=== PATIENT | female | born 1955 | race African-American/Black ===

== ENCOUNTER 2024-04-12 16:45 | Inpatient (IN) | payer OTHER ==
[~2024-04-12] VITALS: Ht 167.6 cm; Wt 70.4 kg
--- NOTE | 2024-04-12 17:35 | ED.PDOC ---
Musculoskeletal HPI Comments HPI: Poor Historian. 68-year-old female presents to emergency department for evaluation of left lower extremity DVT that is chronic in nature. She was diagnosed with this approximately five years ago as she used to be on Xarelto but she stopped the Xarelto two years ago and she is only on aspirin now. Patient is visiting from [facility] and had an ultrasound done today of the left lower extremity because she persisted to have some pain and they also wanted to check a for the DVT has resolved and the impression report that she has with her shows exclusive here occlusive DVT within the left femoral and left popliteal vein similar to the previous image that was obtained in 2020. Incidentally also patient was recently diagnosed with TV and is currently on ice on his side. Past Medcial History: TB, DVT, hypertension, hyperlipidemia, Past Surgical History: Denies any REVIEW OF SYSTEMS: CONSTITUTIONAL: Denies acute: fever, diaphoresis, chills, generalized weakness. HEAD: Denies acute: headache, photophobia Eyes: Denies acute: Double vision, vision loss, eye pain, eye discharge. EARS: Denies acute: tinnitus, hearing loss, ear discharge, ear pain, THROAT: Denies acute: sore throat, swelling, difficulty swallowing , pain with swallowing, change in voice. NECK: Denies acute: neck pain, neck swelling, stiff neck. HEART: Denies acute : chest pain, palpitations, LUNGS: Denies acute: SOB, wheezing, cough, hemoptysis ABDOMEN: Denies acute: abdominal pain, Nausea, Vomiting, diarrhea, melena , hematemesis, hematochezia SKIN: Denies acute: rash, redness, lesions, itchiness. EXTREMITIES: Denies acute: calf pain, numbness, tingling, weakness, Denies acute: Low back pain. Neuro: Denies acute: focal neurological deficit, motor or sensory focal neurological deficit, tremors, seizure like activity, confusion, dizziness, change in mental status, loss of bowel or bladder function, cauda equina like symptoms. : Denies acute: dysuria, hematuria, flank pain, increase in urinary frequency. PSYCH: Denies acute: hallucination, suicidal ideation, homicidal ideation. FEMALE: Denies acute: abnormal vaginal bleeding, foul odor, unusual discharge. PHYSICAL EXAM: General: no acute distress, awake and alert. Head: normocephalic, atraumatic. Neck: supple, trachea is midline, no swelling. Throat: Normal phonation. Eyes:, no erythema, no purulent discharge, no proptosis, no icterus. Heart: regular rate, regular rhythm, no significant murmur appreciated. Lungs: no apparent respiratory distress, Able to speak in full sentences. No wheezing, no rhonchi, no crackles. No stridors Clear to auscultation bilaterally. Abdomen: non tender to palpation, non distended, soft, no guarding, no rebound, + bowel sounds. Neuro: Awake, Alert, oriented to name, self, situation, follows commands GCS=15. Speech is normal. Skin: no petechia, no purpura, no cyanosis, non-pale, not jaundice. Lower extremities: --trace bilateral - Pitting edema no deformity, no focal swelling, no calf TTP. Makes eye contact. moves all four extremities. Face: no apparent facial droop. Ambulating in the ED independently. Time Seen by MD: 17:02 Reviewed Notes: Nurses Notes, Allergies Information Source: Patient Location: GARRY Brito DO Apr 12, 2024 17:35
[2024-04-12 18:42] LABS: Basophils # (auto) 0 10 ^3/uL (0-0.2); Basophils % (auto) 0.6 % (0.0-2.0); Eosinophils # (auto) 0.1 10 ^3/uL (0-0.8); Eosinophils % (auto) 2.2 % (0.0-7.0); Hematocrit 33.5 % (36.0-46.0); Hemoglobin 11.3 g/dL (12.2-16.2); Lymphocytes # (auto) 2.4 10 ^3/uL (0.4-5.4); Lymphocytes % (auto) 49.9 % (10.0-50.0); Mean Corpuscular Hemoglobin 27.4 pg (28.0-32.0); Mean Corpuscular Hgb Conc. 33.7 g/dL (32.0-36.0); Mean Corpuscular Volume 81.4 fL (80.0-100.0); Monocytes # (auto) 0.3 10 ^3/uL (0-1.3); Monocytes % (auto) 6.9 % (0.0-12.0); Neutrophils # (auto) 1.9 10 ^3/uL (1.6-8.6); Neutrophils % (auto) 40.4 % (37.0-80.0); Nucleated Red Blood Cells % 0.6 %; Platelet Count (auto) 270 10^3/uL (140-450); Red Blood Cells 4.11 10^6/uL (4.0-5.20); Red Cell Distribution Width 18.4 % (11.8-14.3); White Blood Cell 4.8 10^3/uL (4.4-10.8)
[2024-04-12 18:58] LABS: Alanine Aminotransferase 21 U/L (7-40); Anion Gap 7 (5-15); Aspartate Aminotransferase 20 U/L (13-40); BUN/Creatinine Ratio 13.3 (10.0-20.0); Bilirubin, Total 0.5 mg/dL (0.2-1.0); Blood Urea Nitrogen 12 mg/dL (9-23); Carbon Dioxide 29 mmol/L (20-31); Chloride 102 mmol/L (98-107); Glucose 100 mg/dL (74-106); Potassium 3.5 mmol/L (3.5-5.1); Sodium 138 mmol/L (136-145)
[2024-04-12 18:59] LABS: Alkaline Phosphatase 37 U/L (46-116); Calcium 10.8 mg/dL (8.7-10.4); Total Protein 8.8 g/dL (5.7-8.2)
[2024-04-12 19:01] LABS: INR 1.08 (0.9-1.15); Partial Thromboplastin Time 24.2 SEC (24.5-34.5); Prothrombin Time 11.4 sec (9.3-11.8)
[2024-04-12 22:12] LABS: Urine Bacteria None Seen /hpf (None Seen)
[2024-04-12 23:07] LABS: Urine Blood Negative /uL (Negative); Urine Clarity Clear (Clear); Urine Color Light-Yellow (Yellow); Urine Protein, UAD Negative (Negative); Urine Specific Gravity 1.014 (1.001-1.035); Urine Squamous Epithelial Cell FEW /hpf (<5); Urine Urobilinogen Normal (Negative); Urine WBC 1 /hpf (0 - 5)
[2024-04-12] MEDS ORDERED: ONDANSETRON HCL 4 MG/2 ML VIAL IV PRN (23:30)
[2024-04-12] MEDS ORDERED: TEMAZEPAM 15 MG CAP PO PRN (23:30)
--- NOTE | 2024-04-12 23:41 | DVHHP2 ---
History of Present Illness Reason for Visit: Left leg swelling History of Present Illness 68 female presents for evaluation of left lower extremity swelling. Patient reports a history of left lower extremity DVT for which she was on Xarelto two years ago. Currently she is not on any blood thinners. She was sent for a repeat ultrasound of her left lower extremity due to increased swelling by her primary care provider. Results of the ultrasound revealed a left lower extremity near occlusive DVT. She denies chest pain or shortness for breath. Denies any other acute complaints at the moment. Past Medical History Hypertension, dyslipidemia, DVT and tuberculosis Past Surgical History Denies Family History Noncontributory Smoke: No ALCOHOL: none Drugs: None Lives: with Family Review of Systems Review of Systems Review of systems are currently negative otherwise addressed in HPI. Allergies: Coded Allergies: Acetaminophen (Verified Allergy, Unknown, 04/12/24) Medications Current Medications Medications Dose Ordered Sig/[place] Route Start Time Stop Time Status Last Admin Dose Admin Isoniazid 300 mg DAILY PO 04/13/24 10:00 UNV Atorvastatin Calcium 20 mg HS PO 04/13/24 22:00 UNV Losartan Potassium 25 mg DAILY PO 04/13/24 10:00 UNV Hydrochlorothiazide 25 mg DAILY PO 04/13/24 10:00 UNV Enoxaparin Sodium 70 mg Q12HR SC 04/13/24 10:00 UNV Temazepam 15 mg QHSP PRN PO 04/12/24 23:30 UNV Ondansetron HCl 4 mg Q4HP PRN IV 04/12/24 23:30 UNV Exam Vital Signs Vital Signs Date Time Temp Pulse Resp B/P (MAP) Pulse Ox O2 Delivery O2 Flow Rate FiO2 04/12/24 17:43 98.2 87 16 132/82 (99) 98 Exam Gen: 68-year-old female in mild distress Skin: Warm, dry, normal color and texture, no rash. HEENT: Normocephalic atraumatic, mucous membranes moist and pink. Neck: Cervical and supraclavicular nodes normal without enlargement, trachea is midline, thyroid gland is normal without masses. Pulmonary: Clear to auscultation and percussion bilaterally. Cardiac: Regular rate and rhythm. No murmur Abdomen: Soft, nontender, nondistended, bowel sounds present all 4 quadrants, no guarding, no rigidity, no organomegaly. Extremities: No cyanosis, clubbing, left lower extremity plus one edema mild tenderness Neuro: Cranial nerves II through XII grossly intact, normal affect and speech, no focal motor deficits. Labs/Xrays Labs Test 04/12/24 22:11 04/12/24 21:31 04/12/24 18:00 Range/Units Urine Color Light-yellow Yellow Urine Clarity Clear Clear Urine pH 6.0 5.0-9.0 Urine Specific [place] 1.014 1.001-1.035 Urine Protein Negative Negative Urine Ketones Negative Negative Urine Blood Negative Negative /uL Urine Nitrite Negative Negative Urine Bilirubin Negative Negative Urine Urobilinogen Normal Negative mg/dL Urine Leukocyte Esterase 1+ Negative /uL Urine RBC 1 0 - 4 /hpf Urine WBC 1 0 - 5 /hpf Urine Squamous Epithelial Cells Few <5 /hpf Urine Bacteria None seen None Seen /hpf Urine Glucose Normal Normal mg/dL Troponin I High Sensitivity 3 L </=34 ng/L White Blood Count 4.8 4.4-10.8 10^3/uL Red Blood Count 4.11 4.0-5.20 10^6/uL Hemoglobin 11.3 L 12.2-16.2 g/dL Hematocrit 33.5 L 36.0-46.0 % Mean Corpuscular Volume 81.4 80.0-100.0 fL Mean Corpuscular Hemoglobin 27.4 L 28.0-32.0 pg Mean Corpuscular Hemoglobin Concent 33.7 32.0-36.0 g/dL Red Cell Distribution Width 18.4 H 11.8-14.3 % Platelet Count 270 140-450 10^3/uL Mean Platelet Volume 7.4 6.9-10.8 fL Neutrophils (%) (Auto) 40.4 37.0-80.0 % Lymphocytes (%) (Auto) 49.9 10.0-50.0 % Monocytes (%) (Auto) 6.9 0.0-12.0 % Eosinophils (%) (Auto) 2.2 0.0-7.0 % Basophils (%) (Auto) 0.6 0.0-2.0 % Neutrophils # (Auto) 1.9 1.6-8.6 10 ^3/uL Lymphocytes # (Auto) 2.4 0.4-5.4 10 ^3/uL Monocytes # (Auto) 0.3 0-1.3 10 ^3/uL Eosinophils # (Auto) 0.1 0-0.8 10 ^3/uL Basophils # (Auto) 0 0-0.2 10 ^3/uL Nucleated Red Blood Cells 0.6 % Prothrombin Time 11.4 9.3-11.8 sec Prothrombin Time INR 1.08 0.9-1.15 Activated Partial Thromboplast Time 24.2 L 24.5-34.5 SEC D-Dimer, Quantitative 1.23 H 0.0-0.49 mg/L FEU Sodium Level 138 136-145 mmol/L Potassium Level 3.5 3.5-5.1 mmol/L Chloride Level 102 98-107 mmol/L Carbon Dioxide Level 29 20-31 mmol/L Anion Gap 7 5-15 Blood Urea Nitrogen 12 9-23 mg/dL Creatinine 0.90 0.550-1.02 mg/dL Glomerular Filtration Rate Calc 71 >90 mL/min BUN/Creatinine Ratio 13.3 10.0-20.0 Serum Glucose 100 74-106 mg/dL Calcium Level 10.8 H 8.7-10.4 mg/dL Total Bilirubin 0.5 0.2-1.0 mg/dL Aspartate Amino Transferase (AST) 20 13-40 U/L Alanine Aminotransferase (ALT) 21 7-40 U/L Alkaline Phosphatase 37 L 46-116 U/L Total Protein 8.8 H 5.7-8.2 g/dL Albumin 4.0 3.2-4.8 g/dL Assessment/Plan Assessment/Plan Assessment Left lower extremity DVT Urinary tract infection Hypertension Tuberculosis Plan Admit the patient to [facility] to the hospitalist CT angiogram pending ordered by ER provider Lovenox 1 milligram/kilogram subcutaneously q.12 hours Resume home medications Continue treatment per orders. Plan discussed with: Patient My Orders Orders - BRYCE HAIR AGACNP Procedure Category Date Status Time Isoniazid (Isoniazid) PHA 04/13/24 Logged 10:00 Atorvastatin (Lipitor) PHA 04/13/24 Logged 22:00 Losartan Tablet PHA 04/13/24 Logged (Cozaar Tablet) 10:00 Hydrochlorothiazide PHA 04/13/24 Logged Tablet (Hydrochlorot 10:00 Enoxaparin Sodium PHA 04/13/24 Logged (Lovenox) 10:00 Enoxaparin Sodium PHA 1/8/25 Logged (Lovenox) 23:30 Basic Metabolic Panel LAB 04/13/24 Verified 04:00 Admit ADMIT 04/12/24 Transmitted 23:23 Temazepam (Restoril) PHA 04/12/24 Logged 23:30 Ondansetron Hcl PHA 04/12/24 Logged (Zofran) 23:30 Cardiac DIET 04/13/24 Transmitted Diet-2gna,Lofat,Lochol Breakfast Condition: Stable RAFFY 04/12/24 In Process 23:23 Bedrest With Bathroom RAFFY 04/12/24 In Process Privileg 23:23 Date of Service: Apr 12, 2024 Billing Provider: BRYCE HAIR Common Visit Codes: [id number] INP/OBS CARE (HIGH) BRYCE HAIR Apr 12, 2024 23:41
--- NOTE | 2024-04-13 00:18 | DVH ---
CHEST RADIOGRAPH Indication: LLE DVT, h/o TB Technique: Single frontal view of the chest was obtained Comparison: None FINDINGS: Lines and Tubes: None Lungs: Clear Pleura: No effusion. No pneumothorax. Cardiomediastinal contours: Unremarkable Bones: Unremarkable IMPRESSION: Clear lungs.
--- NOTE | 2024-04-13 00:25 | DVH ---
CTA Chest with intravenous contrast INDICATION: dvt, TB Comparison Study: None available at time of dictation. TECHNIQUE: Multidetector spiral CTA of the chest was performed of the chest with intravenous contrast . PULMONARY ANGIOGRAPHY PROTOCOL was utilized using a bolus-tracking technique centered on the main p ulmonary artery. Axial, coronal and sagittal multiplanar and MIP reformats were performed. Radiation Dose : 1. Chest: CTDI volume is 123 mGy. Dose-length product is 465 mGy*cm The dose indicators for CT are the volume Computed Tomography (CT) Dose Index (CTDIvol) and the Dose Length Product (DLP), and are measured in units of mGy and mGy-cm, respectively. These indicators are not patient dose, but values generated from the CT scanner acquisition factors. The report includes radiation exposure data for exposures received during this examination. Findings: Pulmonary artery: Pulmonary embolism. No dilation of the pulmonary trunk. No right heart strain. Lower neck: Within normal limits.. Lungs: Within normal limits.. Heart/Vascular Structures: Mild cardiomegaly. Lymph Nodes: No adenopathy Pleura: Within normal limits.. Musculoskeletal: Within normal limits.. Body wall: Within normal limits.. Upper abdomen: Within normal limits. IMPRESSION: No pulmonary embolism. No aortic dissection or aneurysm.
[2024-04-13 04:05] VITALS: PULSE 69; RESP 18; TEMP 98.8; O2SAT 97
[2024-04-13] MEDS: ENOXAPARIN SOD 100 MG/1 ML SYRINGE SC ONE (04:22)
[2024-04-13 05:59] LABS: Chloride 105 mmol/L (98-107); Sodium 140 mmol/L (136-145)
[2024-04-13 06:00] LABS: Anion Gap 7 (5-15); Carbon Dioxide 28 mmol/L (20-31)
[2024-04-13 06:01] LABS: Calcium 10.2 mg/dL (8.7-10.4)
[2024-04-13 06:05] LABS: BUN/Creatinine Ratio 19.1 (10.0-20.0); Blood Urea Nitrogen 13 mg/dL (9-23); Glucose 86 mg/dL (74-106)
[2024-04-13 06:07] LABS: Potassium 3.4 mmol/L (3.5-5.1)
--- NOTE | 2024-04-13 07:18 | ECG ---
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
[2024-04-13 07:30] VITALS: PULSE 72; RESP 18; O2SAT 99
[2024-04-13 08:41] VITALS: BP 136/92; PULSE 72; RESP 18; O2SAT 99
[2024-04-13] MEDS: POTASSIUM CHL 20 Meq TABLET PO ONE (09:00)
[2024-04-13] MEDS ORDERED: ISON300T68 PO (09:15)
[2024-04-13] MEDS ORDERED: FOLI-119 PO (09:15)
[2024-04-13] MEDS ORDERED: ATOR20TA PO (09:15)
[2024-04-13] MEDS ORDERED: RIVA20TA PO (09:15)
[2024-04-13] MEDS ORDERED: LOSA-533 PO (09:18)
[2024-04-13] MEDS ORDERED: CHOL1TAB42 PO (09:18)
[2024-04-13] MEDS ORDERED: HYDR25TA4 PO (09:18)
[2024-04-13] MEDS ORDERED: AMLO1TAB22 PO (09:18)
--- NOTE | 2024-04-13 09:28 | DVHDS2 ---
Discharge Summary Date of Admission Apr 12, 2024 at 23:23 Date of Discharge: Apr 13, 2024 Labs/Diagnostic Data: Laboratory Results Test 04/13/24 05:00 04/12/24 22:11 04/12/24 21:31 04/12/24 18:00 Sodium Level 140 mmol/L (136-145) Potassium Level 3.4 mmol/L (3.5-5.1) Chloride Level 105 mmol/L (98-107) Carbon Dioxide Level 28 mmol/L (20-31) Anion Gap 7 (5-15) Blood Urea Nitrogen 13 mg/dL (9-23) Creatinine 0.68 mg/dL (0.550-1.02) Glomerular Filtration Rate Calc 96 mL/min (>90) BUN/Creatinine Ratio 19.1 (10.0-20.0) Serum Glucose 86 mg/dL (74-106) Calcium Level 10.2 mg/dL (8.7-10.4) Urine Color Light-yellow (Yellow) Urine Clarity Clear (Clear) Urine pH 6.0 (5.0-9.0) Urine Specific [place] 1.014 (1.001-1.035) Urine Protein Negative (Negative) Urine Ketones Negative (Negative) Urine Blood Negative /uL (Negative) Urine Nitrite Negative (Negative) Urine Bilirubin Negative (Negative) Urine Urobilinogen Normal mg/dL (Negative) Urine Leukocyte Esterase 1+ /uL (Negative) Urine RBC 1 /hpf (0 - 4) Urine WBC 1 /hpf (0 - 5) Urine Squamous Epithelial Cells Few /hpf (<5) Urine Bacteria None seen /hpf (None Seen) Urine Glucose Normal mg/dL (Normal) Troponin I High Sensitivity 3 ng/L (</=34) White Blood Count 4.8 10^3/uL (4.4-10.8) Red Blood Count 4.11 10^6/uL (4.0-5.20) Hemoglobin 11.3 g/dL (12.2-16.2) Hematocrit 33.5 % (36.0-46.0) Mean Corpuscular Volume 81.4 fL (80.0-100.0) Mean Corpuscular Hemoglobin 27.4 pg (28.0-32.0) Mean Corpuscular Hemoglobin Concent 33.7 g/dL (32.0-36.0) Red Cell Distribution Width 18.4 % (11.8-14.3) Platelet Count 270 10^3/uL (140-450) Mean Platelet Volume 7.4 fL (6.9-10.8) Neutrophils (%) (Auto) 40.4 % (37.0-80.0) Lymphocytes (%) (Auto) 49.9 % (10.0-50.0) Monocytes (%) (Auto) 6.9 % (0.0-12.0) Eosinophils (%) (Auto) 2.2 % (0.0-7.0) Basophils (%) (Auto) 0.6 % (0.0-2.0) Neutrophils # (Auto) 1.9 10 ^3/uL (1.6-8.6) Lymphocytes # (Auto) 2.4 10 ^3/uL (0.4-5.4) Monocytes # (Auto) 0.3 10 ^3/uL (0-1.3) Eosinophils # (Auto) 0.1 10 ^3/uL (0-0.8) Basophils # (Auto) 0 10 ^3/uL (0-0.2) Nucleated Red Blood Cells 0.6 % Prothrombin Time 11.4 sec (9.3-11.8) Prothrombin Time INR 1.08 (0.9-1.15) Activated Partial Thromboplast Time 24.2 SEC (24.5-34.5) D-Dimer, Quantitative 1.23 mg/L FEU (0.0-0.49) Total Bilirubin 0.5 mg/dL (0.2-1.0) Aspartate Amino Transferase (AST) 20 U/L (13-40) Alanine Aminotransferase (ALT) 21 U/L (7-40) Alkaline Phosphatase 37 U/L (46-116) Total Protein 8.8 g/dL (5.7-8.2) Albumin 4.0 g/dL (3.2-4.8) Other Laboratory Tests 04/13/24 05:00 04/12/24 18:00 Brief Hx & Hospital Course: 68-year-old female with a history of hypertension and DVT of her leg came because of increased swelling in her leg and had an ultrasound as an outpatient which showed recurrent DVT. The patient has not been taking anticoagulation for 2-3 years now. She was taking Xarelto but she stopped it 3 years ago after she took it for 2 years She also had a positive TB test and she has been taking isoniazid since January of 2024. She denies any respiratory symptoms. She has no cough, no hemoptysis, no fever no chills no night sweats no weight loss She has retired here and then went to [facility] to stay there and she has been staying there. She is going back there in about 10 days. 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 She was never diagnosed with TB, she says she had a positive blood test and she was treated with diet and isoniazid for that and therefore there is no need to check for active tuberculosis since also the chest x-ray is negative. Condition at Discharge: Stable Final Diagnosis/Problems List LLE DVT HTN Discharge Disposition: Home SNF Discharge Will this Physician continue t: No Discharge Instruct/Medications Diet: Cardiac 2g Na,low cholest Activity: No Restrictions, As Tolerated Follow Up/Referral: PCP JOHN Medications: Xarelto 20 mg qd Resume home meds Discharge Statement: "Patient was advised to return to the ER or call 911 if any headaches, dizziness, shortness of breath, chest pain, abdominal pain, bleeding, fevers, or worsening of medical condition. Patient was counseled about treatment plan, medications, possible side effects, patientverbalized understanding. All questions were answered to the best of my ability. This discharge took greater then 30 minutes in planning, reviewing documentation, counseling the patient, and discussing with other team members." ASSESSMENT ASSESSMENT Assessment LLE DVT HTN Date of Service: Apr 13, 2024 Billing Provider: ROOSEVELT LAWRENCE MD Common Visit Codes: NOT BILLABLE ROOSEVELT LAWRENCE MD Apr 13, 2024 09:28
[2024-04-13] MEDS: ISONIAZID 300 MG TAB PO SCH (10:00)
[2024-04-13] MEDS: ENOXAPARIN SOD 100 MG/1 ML SYRINGE SC SCH (10:30)
[2024-04-13] MEDS: LOSARTAN POTASSIUM 25 MG TAB PO SCH (10:31)
[2024-04-13] MEDS: hydroCHLOROthiazide 25 MG TAB PO SCH (10:31)
[2024-04-13] MEDS ORDERED: ATORVASTATIN 20 MG TAB PO SCH (22:00)
== END 2024-04-13 17:36 | disposition home or self-care (01) | DRG 301 ==
LOC: ER 16:45 → OVERFLOW 23:23
PROVIDERS: ADMIT Internal Medicine Geriatric Medicine; ATTEND Internal Medicine Geriatric Medicine
DX: I82.402 Acute embolism and thrombosis of unspecified deep veins of left lower extremity (principal); E78.5 Hyperlipidemia, unspecified; I10 Essential (primary) hypertension; Z86.718 Personal history of other venous thrombosis and embolism; Z22.7 Latent tuberculosis; Z88.6 Allergy status to analgesic agent
CPT/HCPCS: 36415; 71045; 71275; 80048; 80053; 81001; 84484; 85025; 85379; 85610; 85730; 93005; G0378